=== PATIENT | male | born 2000 | race Caucasian/White ===

== ENCOUNTER 2021-01-03 20:50 | Emergency (ER) | payer SELFPAY ==
[~2021-01-03] VITALS: Ht 185.4 cm; Wt 90.7 kg
== END 2021-01-03 22:31 | disposition home or self-care (01) ==
LOC: ED 20:50
DX: S51.811A Laceration without foreign body of right forearm, initial encounter (principal); X99.1XXA Assault by knife, initial encounter; F17.200 Nicotine dependence, unspecified, uncomplicated
CPT/HCPCS: 73090; 99283-25